=== PATIENT | male | born 1980 | race African-American/Black ===

== ENCOUNTER 2016-04-03 23:14 | Emergency (ER) | payer OTHER ==
[~2016-04-03] VITALS: Ht 180.3 cm; Wt 83.5 kg
[2016-04-03 23:15] VITALS: Ht 180.3 cm; Wt 83.5 kg
[2016-04-04] MEDS ORDERED: LAMIVUDINE/ZIDOVUDINE TAB PO ONE (01:00)
--- NOTE | 2016-04-04 01:46 | ERD ---
ER Documentation Chief Complaint Date/Time DATE: 04/04/16 TIME: 01:45 Chief Complaint want to be tested x HIV after having unprotected sex 69 hrs ago HPI Patient is a 30-year-old male who presents the ED with wanting HIV prophylaxis medication (PEP) after having unprotected sexual intercourse 3 days ago. He states that he had unprotected sexual intercourse with an HIV-positive person, patient is having unprotected sex with men. He states that he is only here for PEP treatment. He does not want to get tested for HIV, syphilis, gonorrhea or chlamydia. He does not want any treatments besides HIV treatment. He states that he is planning on going to [facility] on Monday where he will get tested for further STDs. He denies any symptoms. He denies any abnormal penile discharge. Denies any fever chills. Denies any abdominal pain , nausea, vomiting or diarrhea. ROS All systems reviewed and are negative except as per history of present illness. Allergies Allergies: Coded Allergies: No Known Allergy (Unverified , 04/03/16) PMhx/Soc Medical and Surgical Hx: pt denies Medical Hx, pt denies Surgical Hx History of Surgery: No Anesthesia Reaction: No Hx Neurological Disorder: No Hx Respiratory Disorders: No Hx Cardiac Disorders: No Hx Psychiatric Problems: No Hx Miscellaneous Medical Probl: No Hx Alcohol Use: No Hx Substance Use: No Hx Tobacco Use: No Smoking Status: Never smoker Physical Exam Vitals Vital Signs Date Time Temp Pulse Resp B/P Pulse Ox O2 Delivery O2 Flow Rate FiO2 04/03/16 23:15 97.2 65 18 138/76 99 Physical Exam GENERAL: Well-developed, well-nourished male. Appears in no acute distress. HEAD: Normocephalic, atraumatic. EYES: Pupils are equally reactive bilaterally. EOMs grossly intact. No conjunctival erythema. ENT: Moist mucous membranes. No uvula deviation. No kissing tonsils. No exudates. NECK: Supple. No lymphadenopathy or thyromegaly. No meningismus. negative kernig. negative brudinski. LUNG: Clear to auscultation bilaterally. No rhonchi, wheezing, rales or coarse breath sounds. HEART: Regular rate and rhythm. No murmurs, rubs or gallops. Extremities: Equal pulses bilaterally. No peripheral clubbing, cyanosis or edema. No unilateral leg swelling. NEUROLOGIC: Alert and oriented. Moving all four extremities. 5/5 strength in all extremities. Normal speech. Steady gait. SKIN: Normal color. Warm and dry. No rashes or lesions. Capillary refill < 2 seconds Results 24 hrs Current Medications Medications (Trade) Dose Ordered Sig/[place] Route PRN Reason Start Time Stop Time Status Last Admin Dose Admin Lamivudine/ Zidovudine (Combivir) 1 tab ONCE ONCE PO 04/04/16 01:00 04/04/16 01:01 DC 04/04/16 01:10 Procedures/MDM ER COURSE: I kept the patient and/or family informed of laboratory and diagnostic imaging results throughout the emergency room course. MEDICATIONS: Combivir. One tab given to patient in the ED. MEDICAL DECISION MAKING: This is a 30-year-old male who presents with HIV prophylaxis treatment. Vital signs were reviewed. Patient is afebrile. Patient is not hypoxic. Patient is not toxic or ill-appearing. 1 dose of Combivir was given to the patient in the ED and a prescription for Combivir was given home for the patient. I spoke with pharmacist at [facility] who stated that Combivir is the treatment. Prescription for Combivir 1 tab twice daily for 28 days was given to patient. Patient did not want any other laboratory examination or treatment in the ED. Patient was in a jorge to leave and was only requesting a prescription for Combivir. No labs were sent for other STDs or HIV. Patient to follow-up with another clinic on Monday for further evaluation. Low suspicion for pneumonia, PE, pneumothorax, ACS, epiglottitis, obstruction, TB, pertussis, meningitis, sepsis. Low suspicion for pyelonephritis, UTI, nephrolithiasis, appendicitis, testicular torsion, incarcerated or strangulated hernia. Low suspicion for sepsis, meningitis or other emergency in the ED. DISCHARGE: At this time, patient is stable for discharge and outpatient management with no new complaints during the ER course. Patient was sent home with Combivir. Patient will be discharged home with instructions to recheck for new or worsening symptoms such as fever, nausea, weakness, LOC and to follow up with primary care in the next 1-2 days. Patient was advised to return to the ER for any new or worsening symptoms. Plan was discussed and patient and/or family understands and agrees. Home instructions were given. Departure Diagnosis: Primary Impression: Encounter for laboratory examination Condition: Stable Additional Instructions: Call your primary care doctor TOMORROW for an appointment during the next 1-2 days.See the doctor sooner or return here if your condition worsens before your appointment time. ASHISH ENCARNACION PA-C Apr 04, 2016 01:46
== END 2016-04-04 01:15 | disposition home or self-care (01) ==
LOC: FTE 23:14
DX: Z11.4 Encounter for screening for human immunodeficiency virus [HIV] (principal)
CPT/HCPCS: Z7502; Z7610; 99283